=== PATIENT | male | born 1955 | race Caucasian/White ===

== ENCOUNTER 2017-03-16 23:56 | Emergency (ER) | payer OTHER ==
--- NOTE | ~2017-03-16 | CR72 ---
[facility] A Service of [facility] RADIOLOGY TEXT RESULTS PATIENT: JULI MCMULLEN LOCATION: [facility] : 57 UNIT #: [id number] AGE: [address]: Elsa Schilling MD SEX: M ORDER DR: [id number] [facility] [address] [place], [place] [address] [id number] P MR#: [id number] Acc #: [id number] NAME: JULI MCMULLEN : 1955 SEX: M STUDY DATE/TIME: 03/16/2017 20:48 UNIT: [facility] ROOM: STUDY DESCRIPTION: CR Chest Single View Portable Attending Physician: Elsa Schilling M.D. Ordering Physician: Catracho French M.D. [facility] RE[facility] This report is preliminary unless electronic signature is present EXAM Portable chest. DATE OF EXAM 03/16/2017 HISTORY Shortness of breath for 3 days. Chest congestion. Body-wide pain with generalized weakness. FINDINGS A single AP portable view of the chest shows both lungs to be clear. The heart is normal in size. The mediastinal contour is normal. No significant bone abnormalities are seen. IMPRESSION Normal portable chest. Dictated by... Ángel Falcon M.D. THIS IS AN ELECTRONICALLY VERIFIED REPORT Ángel Falcon M.D. at 03/17/2017 2:14 PM KRT/yovanny TD: 03/16/2017 23:11 JOB #: [id number] [facility] A Service of [facility] RADIOLOGY TEXT RESULTS PATIENT: JULI MCMULLEN LOCATION: [facility] : 57 UNIT #: [id number] AGE: [address]: Elsa Schilling MD SEX: M ORDER DR: MEDICAL IMAGING REPORT Page 1 of 1 COPY
[2017-03-16 22:42] LABS: INFLUENZA A NEG (NEG); INFLUENZA B NEG (NEG)
[~2017-03-16 23:56] MED LIST: ACETAMINOPHEN PO; ALB/IPRATROPIUM/1 E1 INH; ALBUTEROL17 G1 IH; ALBUTEROL17 GM INH; AMOXICILLIN PO; AMOXICILLIN500 M1 PO; CIPRO PO; DOXYCYCLINE PO; FLEXERIL10 MG PO; HYDROXYZINE HCL50 MG PO; LEVAQUIN PO; LISINOPRIL PO; LORTAB 5/500 TA1 TA2 PO; MARY'S MAGIC MOUTH PO; MOBIC15 MG PO; NAPROSYN500 MG PO; PHENERGAN W/CO120 ML PO; PREDNISONE PO; ROBITUSSIN-PE240 ML PO; VICODIN 5/500 T1 TAB PO
== END 2017-03-17 00:34 | disposition home or self-care (01) ==
LOC: CED 23:56
PROVIDERS: Student in an Organized Health Care Education/Training Program
DX: J44.1 Chronic obstructive pulmonary disease with (acute) exacerbation (principal); J11.1 Influenza due to unidentified influenza virus with other respiratory manifestations; I10 Essential (primary) hypertension
CPT/HCPCS: 71010; 87804; 94640; 99284

== ENCOUNTER 2017-06-26 17:53 | Emergency (ER) | payer OTHER ==
[~2017-06-26] VITALS: Ht 175.3 cm; Wt 74.8 kg
== END 2017-06-26 19:40 | disposition home or self-care (01) ==
LOC: CED 17:53 → CFTX 17:53
DX: R21 Rash and other nonspecific skin eruption (principal); F17.210 Nicotine dependence, cigarettes, uncomplicated; Z98.890 Other specified postprocedural states
CPT/HCPCS: 99282